=== PATIENT | male | born 1980 | race American Indian/Alaskan Native ===

== ENCOUNTER 2018-04-13 13:00 | Emergency (ER) | payer SELFPAY ==
[2018-04-13 13:08] VITALS: BP 112/90
[2018-04-13] MEDS ORDERED: TRIMOX PO ONE (14:30)
[2018-04-13] MEDS ORDERED: DECADRON IM ONE (14:30)
--- NOTE | 2018-04-13 14:31 | Emergency Department Report ---
Minor Respiratory - HPI Chief Complaint: Upper Respiratory Infection Stated Complaint: FLU LIKE SYM Time Seen by Provider: 04/13/18 14:26 Duration: 8 D Pain Location: Throat Severity: moderate Minor Respiratory: Yes Sore Throat, Yes Able to Tolerate Fluids, Yes Cough, No Rhinorrhea, No Ear Pain, No Sick Contacts, No Hemoptysis, No Chest Pain, No Shortness of Breath, No Fever Other History: she is a 37-year-old -[place] male who comes to the emergency room with an 8 day history of laying in bed because he had body aches and pains. He states he did not take his temperature but he had chills. Patient is hyperverbal on exam. He says he is kicked up on cold medicines. He did not get A FLU shot this year ED Review of Systems ROS: Stated complaint: FLU LIKE SYM Other details as noted in HPI Comment: All other systems reviewed and negative Constitutional: see HPI, chills. denies: fever Eyes: denies: eye pain ENT: as per HPI, throat pain Respiratory: see HPI, cough Cardiovascular: denies: dyspnea on exertion Endocrine: denies: flushing Gastrointestinal: denies: vomiting Genitourinary: denies: dysuria Musculoskeletal: denies: back pain Neurological: denies: headache Psychiatric: denies: anxiety Hematological/Lymphatic: denies: easy bleeding ED Past Medical Hx - Past Medical History Previous Medical History?: No - Surgical History Past Surgical History?: No - Family History Family history: no significant - Social History Smoking Status: Current Every Day Smoker Substance Use Type: Alcohol, Marijuana - Medications Home Medications: Home Medications Medication Instructions Recorded Confirmed Last Taken Type Amoxicillin 500 mg PO BID #20 capsule 04/13/18 Unknown Rx Minor Respiratory Exam - Exam General: Vital signs noted. No distress. Alert and acting appropriately. HEENT: Yes Pharyngeal Erythema, Yes Pharyngeal Exudates, Yes Moist Mucous Membranes, No Rhinorrhea, No Conjuctival Injection, No Frontal Tenderness, No Maxillary Tenderness Ear: Neither TM Bulge, Neither TM Erythema, Neither EAC Pain, Neither EAC Discharge Neck: No Adenopathy, No Supple Lungs: Yes Good Air Exchange, No Wheezes, No Ronchi, No Stridor, No Cough, No Labored Respirations, No Retractions, No Use of Accessory Muscles, No Other Abnormal Lung Sounds Heart: Yes Regular, No Murmur Abdomen: Yes Normal Bowel Sounds, No Tenderness, No Peritoneal Signs Skin: No Rash, No Edema Neurologic: Alert and oriented, no deficits. Musculoskeletal: Unremarkable. ED Course Vital Signs 04/13/18 13:04 Temperature 98.1 F Pulse Rate 93 H Respiratory 18 Rate Blood Pressure 112/90 O2 Sat by Pulse 100 Oximetry ED Medical Decision Making - Medical Decision Making EXUDATES BILATERAL POST PHARYNX NO MAX/FRONTAL SINUS TENDERNESS LUNGS CTA ABD SNT AMBULATORY NON TOXIC TAKING PO DC HOME ON AMOX WITH FOLLOW UP - Differential Diagnosis URTI Critical care attestation.: If time is entered above; I have spent that time in minutes in the direct care of this critically ill patient, excluding procedure time. ED Disposition Clinical Impression: Pharyngitis Disposition: DC- TO HOME OR SELFCARE Is pt being admited?: No Does the pt Need Aspirin: No Condition: Stable Instructions: Pharyngitis (ED) Additional Instructions: REST HYDRATE WELL WITH WATER MED ORDERED TODAY UNTIL GONE FOLLOW UP WITH PCP REFERRAL GIVEN BELOW DIET TOLERATED ACTIVITY TOLERATED YOU MAY WORK SO LONG YOU DONT HAVE A FEVER Referrals: MARY PHAN MD [Staff Physician] - 3-5 Days Time of Disposition: 14:29
== END 2018-04-13 19:00 | disposition home or self-care (01) ==
LOC: ED 13:00
DX: J02.9 Acute pharyngitis, unspecified (principal); F12.10 Cannabis abuse, uncomplicated; F17.200 Nicotine dependence, unspecified, uncomplicated
CPT/HCPCS: 96372; 99282; J1100